=== PATIENT | female | born 1980 | race Caucasian/White ===

== ENCOUNTER 2016-10-29 19:31 | Emergency (ER) | payer MEDICAID ==
[~2016-10-29] VITALS: Ht 152.4 cm; Wt 65.8 kg
[~2016-10-29 19:31] MED LIST: FERR324T11 PO; PREN-385 PO
[2016-10-29 20:03] VITALS: BP 134/90
--- NOTE | 2016-10-29 22:53 | NUR ---
TO ER BED 8
--- NOTE | 2016-10-29 22:58 | NUR ---
PATIENT PRESENTS TO ED WITH C/O RECTAL BLEED . PT STATES SHE HAS HAD THIS X3DAYS NOW WITH NO PAIN . DENIES N/V/D; SKIN IS PINK/WARM/DRY; AAOX4 WITH EVEN AND STEADY GAIT; LUNGS CLEAR BL; HR EVEN AND REGULAR; PT DENIES ANY FEVER, CP, SOB, OR COUGH AT THIS TIME; PATIENT STATES PAIN OF 0/10 AT THIS TIME; VSS; PATIENT POSITIONED FOR COMFORT; HOB ELEVATED; BEDRAILS UP X2; BED DOWN. ER MD MADE AWARE OF PT STATUS.
[2016-10-29 23:35] LABS: APPEARANCE,URINE CLOUDY (CLEAR); BILIRUBIN,URINE NEGATIVE (NEGATIVE); BLOOD, URINE NEGATIVE (NEGATIVE); COLOR,URINE YELLOW (YELLOW); LEUKOCYTE ESTERASE ,URINE NEGATIVE (NEGATIVE); NITRITE, URINE NEGATIVE (NEGATIVE); PROTEIN,URINE NEGATIVE (NEGATIVE); UGLUCOSE NEGATIVE (NEGATIVE); UROBILINOGEN,URINE 0.2 EU/dL (0.2 - 1)
[2016-10-29 23:53] LABS: BACTERIA,URINE 1+ /HPF (None Seen); MUCUS,URINE 1+ /LPF (None Seen); RBC,URINE 0-5 (RARE) /HPF (0-5); WBC,URINE 0-5 (RARE) /HPF (0-5)
[2016-10-29 23:54] LABS: URINE AMORPHOUS URATE 4+ /HPF (None Seen)
--- NOTE | 2016-10-30 00:06 | NUR ---
Female Wood Cabinetmaker accompanied female patient for Rectal Exam.
[2016-10-30 00:33] VITALS: BP 128/75
--- NOTE | 2016-10-30 00:34 | NUR ---
Patient discharged with v/s stable. Written and verbal after care instructions given and explained. Patient alert, oriented and verbalized understanding of instructions. Ambulatory with steady gait. All questions addressed prior to discharge. ID band removed. Patient advised to follow up with PMD. Rx of ANUSOL HC 2.5% RECTAL CREAM given. Patient educated on indication of medication including possible reaction and side effects. Opportunity to ask questions provided and answered.
== END 2016-10-30 00:32 | disposition home or self-care (01) ==
LOC: MED 19:31
DX: K64.4 Residual hemorrhoidal skin tags (principal)
CPT/HCPCS: 81001; 81025; 87086; 99284

== ENCOUNTER 2018-10-14 22:49 | Emergency (ER) | payer MEDICAID ==
[~2018-10-14] VITALS: Ht 152.4 cm; Wt 72.6 kg
[2018-10-14 22:55] VITALS: BP 113/74
--- NOTE | 2018-10-14 22:57 | NUR ---
TO LOBBY A/W BED AMB, BRUNA COE NOTED
--- NOTE | 2018-10-14 23:05 | NUR ---
BIB SELF WITH C/O PAINFUL URINATION AND SUPRAPUBIC PAIN SINCE THIS MORNING. DENIES NVD, FEVER. URINE COLLECTED.
--- NOTE | 2018-10-14 23:05 | NUR ---
PT TAKEN TO BED 11
[2018-10-15] MEDS ORDERED: PHENAZOPYRIDINE 100 MG TAB PO ONE (00:10)
[2018-10-15] MEDS ORDERED: KETOROLAC 60 MG/2 ML VIAL IM ONE (00:10)
[2018-10-15] MEDS ORDERED: SULFAMETH/TRIMETH DS 800/160MG 1 TAB PO ONE (00:10)
[2018-10-15 00:35] VITALS: BP 112/71
--- NOTE | 2018-10-15 00:35 | NUR ---
Patient discharged with v/s stable. Written and verbal after care instructions given and explained. Patient alert, oriented and verbalized understanding of instructions. Ambulatory with steady gait. All questions addressed prior to discharge. ID band removed. Patient advised to follow up with PMD. Rx of PYRIDIUM AND BACTRIM DS given. Patient educated on indication of medication including possible reaction and side effects. Opportunity to ask questions provided and answered.
== END 2018-10-15 00:35 | disposition home or self-care (01) ==
LOC: MED 22:49
DX: N39.0 Urinary tract infection, site not specified (principal); Z79.899 Other long term (current) drug therapy
CPT/HCPCS: 81002; 81025; 96372; 99283; J1885

== ENCOUNTER 2019-05-01 21:40 | Emergency (ER) | payer MEDICAID ==
[~2019-05-01] VITALS: Ht 152.4 cm; Wt 72.1 kg
[2019-05-01 21:43] VITALS: BP 144/79
--- NOTE | 2019-05-01 21:43 | NUR ---
PT AMBULATED TO BED #8
--- NOTE | 2019-05-01 22:00 | NUR ---
DR. CABA BEDSIDE EVALUATING PT
--- NOTE | 2019-05-01 22:07 | NUR ---
PT C/O RIGHT 1ST TOE PAIN X 1 WEEK. PT STATED THAT SHE HAD A PEDICURE DONE AND NOW THERE IS PAIN 8/10, ERYTHMA, SWELLING AND PUS/DRAINAGE. SKIN TEAR AT NAIL BED NOTED. VSS. AA0X4. BED IS DOWN, LOCKED, BED RAIL X 1, ERMD TO SEE PT. NKA NO PREVIOUS MEDICAL HX
[2019-05-01] MEDS ORDERED: LIDOCAINE 2% 1000 MG/50 ML VIAL INJ ONE (22:10)
--- NOTE | 2019-05-01 22:16 | NUR ---
LIDOCAINE AT BEDSIDE FOR ERMD
[2019-05-01] MEDS ORDERED: BACITRACIN OINT 500 UNITS/GM PKT TP ONE ×2 (22:35→22:37)
--- NOTE | 2019-05-01 22:50 | NUR ---
BACITRACIN APPLIED TO SITE AND BANDAGED
[2019-05-01 23:00] VITALS: BP 146/74
--- NOTE | 2019-05-01 23:00 | NUR ---
Patient discharged with v/s stable. Written and verbal after care instructions given and explained. Patient alert, oriented and verbalized understanding of instructions. Ambulatory with steady gait. All questions addressed prior to discharge. ID band removed. Patient advised to follow up with PMD. Rx of BACTRIM AND MOTRIN given. Patient educated on indication of medication including possible reaction and side effects. Opportunity to ask questions provided and answered.
== END 2019-05-01 23:00 | disposition home or self-care (01) ==
LOC: MED 21:40
DX: L03.031 Cellulitis of right toe (principal); Z79.899 Other long term (current) drug therapy
CPT/HCPCS: 10060; 99283; J2001

== ENCOUNTER 2021-03-15 00:30 | Emergency (ER) | payer MEDICAID, SELFPAY ==
[~2021-03-15] VITALS: Ht 152.4 cm; Wt 68.0 kg
[~2021-03-15 00:30] MED LIST changes: +ALBU0.0912 INH; +ASPI-1749 PO; +DEXA6TAB1 PO; -FERR324T11 PO; +GUAN1TAB6 PO; -PREN-385 PO; +VITC500 PO; +ZINC220C29 PO; +[UNRECOGNIZED DRUG - CODE] PO
[2021-03-15 00:58] VITALS: BP 142/90
[2021-03-15 01:48] LABS: BASOPHILS # (AUTO) 0.1 K/uL (0.00-0.22); BASOPHILS % (AUTO) 0.4 % (0.0-2.0); EOSINOPHILS # (AUTO) 0.1 K/uL (0-0.4); EOSINOPHILS % (AUTO) 0.5 % (0.0-4.0); HEMATOCRIT 41.4 % (36-48); HEMOGLOBIN 13.6 g/dL (12.0-16.0); LYMPHOCYTES # (AUTO) 3.1 K/uL (2.5-16.5); LYMPHOCYTES % (AUTO) 19.5 % (20.5-51.1); MEAN CORPUSCULAR HEMOGLOBIN 30 pg (27-31); MEAN CORPUSCULAR HGB CONC 33 g/dL (33-37); MEAN CORPUSCULAR VOLUME 91.2 fL (80-94); MONOCYTES # (AUTO) 1.1 K/uL (0.8-1.0); MONOCYTES % (AUTO) 7.3 % (1.7-9.3); NEUTROPHILS # (AUTO) 11.3 K/uL (1.8-7.7); NEUTROPHILS % (AUTO) 72.3 % (42.2-75.2); PLATELET COUNT (AUTO) 373 K/uL (140-450); RED BLOOD CELL COUNT(AUTO) 4.54 MIL/uL (4.20-5.40); RED CELL DISTRIBUTION WIDTH 14.4 % (11.6-13.7); WHITE BLOOD COUNT (AUTO) 15.7 K/uL (4.8-10.8)
--- NOTE | 2021-03-15 01:50 | NUR ---
TO BED AMBULATORY WITH DAUGHTER
--- NOTE | 2021-03-15 02:00 | NUR ---
SEEN AND EXAMINED BY CAROLIN, WITH ORDERS AND CARRIED OUT.
[2021-03-15] MEDS ORDERED: NACL 0.9% 1,000 ML IV ONE ×2 (02:15→05:30)
--- NOTE | 2021-03-15 03:00 | NUR ---
SENT FOR CT WITH THE TECH., VIA WHEELCHAIR
--- NOTE | 2021-03-15 03:50 | NUR ---
PATIENT VERY ANXIOUS, NOTED BY ERMD WITH ORDER, CARRIED OUT.
[2021-03-15 03:59] LABS: ALBUMIN 3.2 g/dL (3.4-5.0); ANION GAP 14.1 (8-16); CREATININE 0.7 mg/dL (0.6-1.3); POTASSIUM 4.1 mmol/L (3.5-5.1); TOTAL BILIRUBIN 0.4 mg/dL (0.0-1.0)
[2021-03-15] MEDS ORDERED: LORazepam 2 MG/ML VIAL IVP ONE (04:00)
--- NOTE | 2021-03-15 04:00 | NUR ---
MEDICATED PER ERMDS ORDER, TOLERATED WELL.
--- NOTE | 2021-03-15 04:15 | NUR ---
Patient appears to be resting comfortably in bed. Vital Signs within normal limits. Respirations even and unlabored.
[2021-03-15] MEDS ORDERED: ATI.5 PO (05:28)
--- NOTE | 2021-03-15 05:45 | NUR ---
ALL RESULTS BACK AND NOTED BY ERMD AND FOR D/C
[2021-03-15 06:40] VITALS: BP 117/89
--- NOTE | 2021-03-18 19:31 | NUR ---
LATE ENTRY- 0.9% NS IVF DISCONTINUED AT 0640
== END 2021-03-15 06:40 | disposition home or self-care (01) ==
LOC: MED 00:30
DX: R00.2 Palpitations (principal); R00.0 Tachycardia, unspecified; E86.0 Dehydration; Z79.899 Other long term (current) drug therapy; Z79.82 Long term (current) use of aspirin; Z86.19 Personal history of other infectious and parasitic diseases
CPT/HCPCS: 36415; 71275; 80053; 81002; 81025; 84703; 85025; 93005; 96361; 96374; 99285; J2060; J7030; Q9967

== ENCOUNTER 2021-03-20 15:44 | Emergency (ER) | payer MEDICAID, SELFPAY ==
[~2021-03-20] VITALS: Ht 152.4 cm; Wt 63.5 kg
[~2021-03-20 15:44] MED LIST changes: +ATI.5 PO
[2021-03-20 15:50] VITALS: BP 140/83
[2021-03-20] MEDS ORDERED: MELA1TAB32 PO (17:48)
[2021-03-20] MEDS ORDERED: HYDR25CA1 PO (17:48)
[2021-03-20 18:20] VITALS: BP 135/75
--- NOTE | 2021-03-20 18:20 | NUR ---
Patient discharged with v/s stable. Written and verbal after care instructions given and explained. Patient alert, oriented and verbalized understanding of instructions. Ambulatory with steady gait. All questions addressed prior to discharge. ID band removed. Patient advised to follow up with PMD. Rx of VISTARIL, MELATONIN given. Patient educated on indication of medication including possible reaction and side effects. Opportunity to ask questions provided and answered.
--- NOTE | 2021-03-20 18:20 | NUR ---
no nursing care rendered
== END 2021-03-20 18:20 | disposition home or self-care (01) ==
LOC: MED 15:44
DX: F41.9 Anxiety disorder, unspecified (principal); Z79.899 Other long term (current) drug therapy; Z79.82 Long term (current) use of aspirin
CPT/HCPCS: 71045; 99283

== ENCOUNTER 2021-04-13 11:46 | Emergency (ER) | payer MEDICAID ==
[~2021-04-13] VITALS: Ht 152.4 cm; Wt 72.6 kg
[~2021-04-13 11:46] MED LIST changes: +HYDR25CA1 PO; +MELA1TAB32 PO
[2021-04-13 12:07] VITALS: BP 122/76
--- NOTE | 2021-04-13 12:10 | NUR ---
PT TO WAIT IN LOBBY.
[2021-04-13] MEDS ORDERED: ATI.5 PO (13:58)
--- NOTE | 2021-04-13 14:33 | NUR ---
PT TAKEN TO CT VIA W/C.
[2021-04-13 14:39] LABS: BASOPHILS # (AUTO) 0.1 K/uL (0.00-0.22); BASOPHILS % (AUTO) 0.8 % (0.0-2.0); EOSINOPHILS # (AUTO) 0.1 K/uL (0-0.4); EOSINOPHILS % (AUTO) 1.3 % (0.0-4.0); HEMOGLOBIN 14.2 g/dL (12.0-16.0); LYMPHOCYTES % (AUTO) 29.5 % (20.5-51.1); MEAN CORPUSCULAR HEMOGLOBIN 30 pg (27-31); MEAN CORPUSCULAR HGB CONC 32 g/dL (33-37); MEAN CORPUSCULAR VOLUME 93.5 fL (80-94); MONOCYTES # (AUTO) 0.4 K/uL (0.8-1.0); MONOCYTES % (AUTO) 6.5 % (1.7-9.3); NEUTROPHILS # (AUTO) 4.2 K/uL (1.8-7.7); NEUTROPHILS % (AUTO) 61.9 % (42.2-75.2); PLATELET COUNT (AUTO) 395 K/uL (140-450); RED CELL DISTRIBUTION WIDTH 15.3 % (11.6-13.7); WHITE BLOOD COUNT (AUTO) 6.8 K/uL (4.8-10.8)
[2021-04-13 14:47] LABS: BILIRUBIN,URINE NEGATIVE (NEGATIVE); BLOOD, URINE NEGATIVE (NEGATIVE); COLOR,URINE YELLOW (YELLOW); LEUKOCYTE ESTERASE ,URINE TRACE (NEGATIVE); NITRITE, URINE POSITIVE (NEGATIVE); UGLUCOSE NEGATIVE (NEGATIVE)
[2021-04-13 14:53] LABS: APPEARANCE,URINE HAZY (CLEAR)
[2021-04-13 15:15] LABS: ALBUMIN 4.1 g/dL (3.4-5.0); ANION GAP 11.8 (8-16); CARBON DIOXIDE 28.4 mmol/L (21-32); CREATININE 0.6 mg/dL (0.6-1.3); POTASSIUM 4.2 mmol/L (3.5-5.1); TOTAL BILIRUBIN 0.3 mg/dL (0.0-1.0)
[2021-04-13 15:32] LABS: RBC,URINE NONE SEEN /HPF (0-5); WBC,URINE 0-5 /HPF (0-5)
[2021-04-13] MEDS ORDERED: CEPH-588 PO (16:53)
[2021-04-13 17:21] VITALS: BP 122/76
--- NOTE | 2021-04-13 17:21 | NUR ---
Patient discharged with v/s stable. Written and verbal after care instructions given and explained. Patient alert, oriented and verbalized understanding of instructions. Ambulatory with steady gait. All questions addressed prior to discharge. ID band removed. Patient advised to follow up with PMD. Rx of LORAZEPAM, CEPHALEXIN given. Patient educated on indication of medication including possible reaction and side effects. Opportunity to ask questions provided and answered.
== END 2021-04-13 17:21 | disposition home or self-care (01) ==
LOC: MED 11:46
DX: R10.13 Epigastric pain (principal); F41.9 Anxiety disorder, unspecified; N39.0 Urinary tract infection, site not specified
CPT/HCPCS: 36415; 80053; 81001; 81025; 85025; 99284

== ENCOUNTER 2021-05-15 15:02 | Emergency (ER) | payer MEDICAID ==
[~2021-05-15] VITALS: Ht 152.4 cm; Wt 65.8 kg
[~2021-05-15 15:02] MED LIST changes: +CEPH-588 PO
--- NOTE | 2021-05-15 15:16 | NUR ---
PT AMB TO BED 1.
[2021-05-15 15:20] VITALS: BP 135/75
--- NOTE | 2021-05-15 15:30 | NUR ---
PT ARRIVES TO ED FOR REFILL OF ATIVAN RX. NO OTHER MEDICAL COMPLAINTS.
[2021-05-15] MEDS ORDERED: ATA25 PO (15:47)
--- NOTE | 2021-05-15 15:57 | NUR ---
PT VERBALIZES DC INSTRUCTIONS. NO ACUTE DISTRESS NOTED. STABLE ON DC.
== END 2021-05-15 15:56 | disposition home or self-care (01) ==
LOC: MED 15:02
DX: F41.9 Anxiety disorder, unspecified (principal); Z76.0 Encounter for issue of repeat prescription
CPT/HCPCS: 99283

== ENCOUNTER 2021-07-23 10:35 | Emergency (ER) | payer MEDICAID ==
[~2021-07-23] VITALS: Ht 152.4 cm; Wt 71.2 kg
[~2021-07-23 10:35] MED LIST changes: +ATA25 PO
[2021-07-23 10:59] VITALS: BP 142/96
[2021-07-23] MEDS ORDERED: HYDROcodone/APAP 5/325 MG 1 TAB TAB PO ONE (11:25)
[2021-07-23] MEDS ORDERED: ONDANSETRON 4 MG ODT PO ONE (11:25)
[2021-07-23] MEDS ORDERED: KETOROLAC 30 MG/ML VIAL IM ONE ×2 (11:25→14:50)
[2021-07-23 13:05] LABS: BASOPHILS % (AUTO) 0.2 % (0.0-2.0); EOSINOPHILS % (AUTO) 0.2 % (0.0-4.0); HEMATOCRIT 42.1 % (36-48); HEMOGLOBIN 14.2 g/dL (12.0-16.0); LYMPHOCYTES % (AUTO) 9.1 % (20.5-51.1); MEAN CORPUSCULAR HEMOGLOBIN 30 pg (27-31); MEAN CORPUSCULAR HGB CONC 34 g/dL (33-37); MEAN CORPUSCULAR VOLUME 90.2 fL (80-94); MONOCYTES # (AUTO) 0.1 K/uL (0.8-1.0); MONOCYTES % (AUTO) 0.6 % (1.7-9.3); NEUTROPHILS # (AUTO) 9.5 K/uL (1.8-7.7); NEUTROPHILS % (AUTO) 89.9 % (42.2-75.2); PLATELET COUNT (AUTO) 379 K/uL (140-450); RED BLOOD CELL COUNT(AUTO) 4.67 MIL/uL (4.20-5.40); RED CELL DISTRIBUTION WIDTH 13.7 % (11.6-13.7); WHITE BLOOD COUNT (AUTO) 10.6 K/uL (4.8-10.8)
[2021-07-23 13:18] LABS: ALBUMIN 3.8 g/dL (3.4-5.0); ANION GAP 8.2 (8-16); CARBON DIOXIDE 27.8 mmol/L (21-32); CREATININE 0.7 mg/dL (0.6-1.3); TOTAL BILIRUBIN 0.3 mg/dL (0.0-1.0)
[2021-07-23 14:41] LABS: APPEARANCE,URINE CLEAR (CLEAR); BILIRUBIN,URINE NEGATIVE (NEGATIVE); BLOOD, URINE TRACE-I (NEGATIVE); LEUKOCYTE ESTERASE ,URINE NEGATIVE (NEGATIVE); NITRITE, URINE NEGATIVE (NEGATIVE); PH,URINE 7.5 (5.0-9.0); UGLUCOSE NEGATIVE (NEGATIVE)
[2021-07-23 14:45] LABS: COLOR,URINE STRAW (YELLOW)
[2021-07-23 14:54] LABS: WBC,URINE 0-5 /HPF (0-5)
[2021-07-23] MEDS ORDERED: ONDA-188 PO (15:16)
[2021-07-23] MEDS ORDERED: ACET-8386 PO (15:16)
[2021-07-23] MEDS ORDERED: NAPR-54 PO (15:16)
[2021-07-23 15:50] VITALS: BP 142/96
--- NOTE | 2021-07-23 15:50 | NUR ---
Patient discharged with v/s stable. Written and verbal after care instructions given and explained. Patient alert, oriented and verbalized understanding of instructions. Ambulatory with steady gait. All questions addressed prior to discharge. ID band removed. Patient advised to follow up with PMD. Rx of ondansetron, naproxen, hydrocodone/acetaminophen (sent) given. Patient educated on indication of medication including possible reaction and side effects. Opportunity to ask questions provided and answered.
== END 2021-07-23 15:50 | disposition home or self-care (01) ==
LOC: MED 10:35
DX: N20.1 Calculus of ureter (principal); R10.32 Left lower quadrant pain; Z79.899 Other long term (current) drug therapy; Z79.82 Long term (current) use of aspirin
CPT/HCPCS: 36415; 74176; 80053; 81001; 81025; 83690; 85025; 96372; 99284; J1885; Q0162

== ENCOUNTER 2021-11-21 18:34 | Emergency (ER) | payer MEDICAID ==
[~2021-11-21] VITALS: Ht 167.6 cm; Wt 68.0 kg
[~2021-11-21 18:34] MED LIST changes: +ACET-8386 PO; +NAPR-54 PO; +ONDA-188 PO
[2021-11-21 18:58] VITALS: BP 132/87
--- NOTE | 2021-11-21 19:03 | NUR ---
PT AMB TO BED 8.
--- NOTE | 2021-11-21 19:15 | NUR ---
40 Y/O F BIB SELF C/O RECTAL PAIN AND PRESSURE 8/10 AND BLEEDING SINCE THIS MORNING. NKA PMH:ANXIETY, HEMORRHOIDS, DIVERTICULITIS
--- NOTE | 2021-11-21 19:23 | NUR ---
GAVE REPORT TO [facility].
[2021-11-21] MEDS ORDERED: PHEN26CR2 RC (21:18)
[2021-11-21 21:40] VITALS: BP 132/87
--- NOTE | 2021-11-21 21:40 | NUR ---
Patient discharged with v/s stable. Written and verbal after care instructions given and explained. Patient alert, oriented and verbalized understanding of instructions. Ambulatory with steady gait. All questions addressed prior to discharge. ID band removed. Patient advised to follow up with PMD. Rx of preparation H cream given. Patient educated on indication of medication including possible reaction and side effects. Opportunity to ask questions provided and answered.
== END 2021-11-21 21:40 | disposition home or self-care (01) ==
LOC: MED 18:34
DX: K64.4 Residual hemorrhoidal skin tags (principal); K62.5 Hemorrhage of anus and rectum; Z79.899 Other long term (current) drug therapy; Z79.891 Long term (current) use of opiate analgesic; Z79.1 Long term (current) use of non-steroidal anti-inflammatories (NSAID); Z79.2 Long term (current) use of antibiotics; Z79.82 Long term (current) use of aspirin
CPT/HCPCS: 99282

== ENCOUNTER 2021-12-30 15:03 | Emergency (ER) | payer MEDICAID ==
[~2021-12-30] VITALS: Ht 152.4 cm; Wt 65.8 kg
[~2021-12-30 15:03] MED LIST changes: +PHEN26CR2 RC
[2021-12-30 15:08] VITALS: BP 125/85
--- NOTE | 2021-12-30 15:14 | NUR ---
PT AMB TO BED 7.
[2021-12-30] MEDS ORDERED: CEPH-588 PO (15:32)
--- NOTE | 2021-12-30 15:35 | NUR ---
Dr. Bryson evaluating patient at bedside.
--- NOTE | 2021-12-30 15:41 | NUR ---
41 y/o female bib self with c/o lower abdominal pain x5 days. Patient also has painful urination and "foaming of her urine" x 5 days. Patient has a 6/10 pain level. Patient denies nausea or vomiting. Patient has no SOB or chest pain. Medical History: Denies NKDA
--- NOTE | 2021-12-30 15:52 | NUR ---
Patient discharged with v/s stable. Written and verbal after care instructions given. Patient alert, oriented and verbalized understanding of instructions. Ambulatory with steady gait. All questions addressed prior to discharge. ID band removed. Patient advised to follow up with PMD. Rx of Keflex given. Opportunity to ask questions provided and answered.
[2021-12-30 15:53] VITALS: BP 125/85
--- NOTE | 2021-12-30 17:05 | NUR ---
The patient's care was reviewed and supervised by Cristy Shah RN.
== END 2021-12-30 15:53 | disposition home or self-care (01) ==
LOC: MED 15:03
DX: N39.0 Urinary tract infection, site not specified (principal); R10.10 Upper abdominal pain, unspecified
CPT/HCPCS: 81002; 81025; 87086; 99283

== ENCOUNTER 2022-03-18 13:15 | Emergency (ER) | payer MEDICAID ==
[~2022-03-18] VITALS: Ht 154.9 cm; Wt 74.8 kg
[2022-03-18 13:20] VITALS: BP 131/90
--- NOTE | 2022-03-18 15:51 | NUR ---
PT AMBULATED TO ER BED 5
--- NOTE | 2022-03-18 16:05 | NUR ---
41YO FEMALE PT C/O RECTAL ITCHYNESS X3 WEEKS. STATES USING OTC CREAM W/ NO RELIEF. DENIES BLOOD IN STOOL, BOWEL CHANGES, N/V/D, CHEST PAIN OR SOB. RECTAL AREA PRESENTSD W/O SWELLING OR VISIBLE INJURY. PT AAOX4, NO VISIBLE DISTRESS.. RESPIRATIONS EVEN AND UNLABORED. HX:DENIES NKA
[2022-03-18] MEDS ORDERED: HYDR25SU37 RC (16:10)
[2022-03-18 16:25] VITALS: BP 133/72
--- NOTE | 2022-03-18 16:25 | NUR ---
Patient discharged with v/s stable. Written and verbal after care instructions FOR HEMORRHOIDS given and explained. Patient alert, oriented and verbalized understanding of instructions. Ambulatory with steady gait. All questions addressed prior to discharge. ID band removed. Patient advised to follow up with PMD. Rx of ANUCORT HC given. Opportunity to ask questions provided and answered.
== END 2022-03-18 16:25 | disposition home or self-care (01) ==
LOC: MED 13:15
DX: L29.0 Pruritus ani (principal); K64.4 Residual hemorrhoidal skin tags; R03.0 Elevated blood-pressure reading, without diagnosis of hypertension; Z79.899 Other long term (current) drug therapy
CPT/HCPCS: 99283

== ENCOUNTER 2022-05-20 10:59 | Emergency (ER) | payer MEDICAID ==
[~2022-05-20] VITALS: Ht 157.5 cm; Wt 65.8 kg
[~2022-05-20 10:59] MED LIST changes: +HYDR25SU37 RC
[2022-05-20 11:11] VITALS: BP 110/76
[2022-05-20] MEDS ORDERED: BENZ-300 PO (15:06)
[2022-05-20] MEDS ORDERED: PROM118S5 PO (15:06)
[2022-05-20] MEDS ORDERED: IBUP-2213 PO (15:06)
[2022-05-20] MEDS ORDERED: KETOROLAC 30 MG/ML VIAL IM ONE (15:25)
[2022-05-20] MEDS ORDERED: NITR100C7 PO (15:26)
== END 2022-05-20 15:37 | disposition home or self-care (01) ==
LOC: MED 10:59
DX: N39.0 Urinary tract infection, site not specified (principal); Z20.822 Contact with and (suspected) exposure to COVID-19; J06.9 Acute upper respiratory infection, unspecified
CPT/HCPCS: 87426; 87804; 96372; 99283; J1885

== ENCOUNTER 2022-06-21 10:15 | Emergency (ER) | payer MEDICAID ==
[~2022-06-21] VITALS: Ht 152.4 cm; Wt 78.5 kg
[~2022-06-21 10:15] MED LIST changes: +BENZ-300 PO; +IBUP-2213 PO; +NITR100C7 PO; +PROM118S5 PO
[2022-06-21 10:24] VITALS: BP 131/92
--- NOTE | 2022-06-21 10:27 | NUR ---
PT AMBULATED TO LOBBY AFTER TRIAGE.
--- NOTE | 2022-06-21 10:27 | NUR ---
41/F WALKED IN C/O RLQ ABD PAIN ONSET 4DAYS. DENIES FALL OR TRAUMA. DENIES NVD, AFEBRILE. PT ALSO C/O CHRONIC B/L HAND TINGLING AND ITCHING SENSATION THAT GOT WORSE RECENTLY. AAO4, AMBULATORY, VITALS STABLE. PMH: DENIES LMP: TODAY
--- NOTE | 2022-06-21 10:30 | NUR ---
URINE COLLECTED AND SENT TO BIN
[2022-06-21 13:10] LABS: ALBUMIN 3.8 g/dL (3.4-5.0); CARBON DIOXIDE 28.7 mmol/L (21-32); CREATININE 0.6 mg/dL (0.6-1.3); POTASSIUM 4.7 mmol/L (3.5-5.1); TOTAL BILIRUBIN 0.6 mg/dL (0.0-1.0)
[2022-06-21 13:13] LABS: BASOPHILS # (AUTO) 0.1 K/uL (0.00-0.22); BASOPHILS % (AUTO) 0.9 % (0.0-2.0); EOSINOPHILS # (AUTO) 0.1 K/uL (0-0.4); EOSINOPHILS % (AUTO) 1.7 % (0.0-4.0); HEMATOCRIT 42.5 % (36-48); HEMOGLOBIN 14.3 g/dL (12.0-16.0); LYMPHOCYTES # (AUTO) 2.8 K/uL (2.5-16.5); LYMPHOCYTES % (AUTO) 36.3 % (20.5-51.1); MEAN CORPUSCULAR HEMOGLOBIN 30 pg (27-31); MEAN CORPUSCULAR HGB CONC 34 g/dL (33-37); MEAN CORPUSCULAR VOLUME 90.4 fL (80-94); MONOCYTES # (AUTO) 0.4 K/uL (0.8-1.0); MONOCYTES % (AUTO) 5.2 % (1.7-9.3); NEUTROPHILS # (AUTO) 4.2 K/uL (1.8-7.7); NEUTROPHILS % (AUTO) 55.9 % (42.2-75.2); PLATELET COUNT (AUTO) 390 K/uL (140-450); RED BLOOD CELL COUNT(AUTO) 4.71 MIL/uL (4.20-5.40); RED CELL DISTRIBUTION WIDTH 13.3 % (11.6-13.7); WHITE BLOOD COUNT (AUTO) 7.6 K/uL (4.8-10.8)
[2022-06-21 14:53] LABS: APPEARANCE,URINE CLEAR (CLEAR); BILIRUBIN,URINE NEGATIVE (NEGATIVE); BLOOD, URINE TRACE-I (NEGATIVE); COLOR,URINE YELLOW (YELLOW); LEUKOCYTE ESTERASE ,URINE NEGATIVE (NEGATIVE); NITRITE, URINE NEGATIVE (NEGATIVE); UGLUCOSE NEGATIVE (NEGATIVE)
[2022-06-21] MEDS ORDERED: NAPR-1704 PO (15:04)
[2022-06-21 15:08] LABS: OTHER CASTS, URINE None Seen /LPF (None Seen); WBC,URINE 0-5 /HPF (0-5)
--- NOTE | 2022-06-21 15:40 | NUR ---
PT CALLED FOR DC, NO ANSWER IN THE LOBBY. PT LEFT PRIOR TO DC.
== END 2022-06-21 15:40 | disposition home or self-care (01) ==
LOC: MED 10:15
DX: R10.11 Right upper quadrant pain (principal); N20.0 Calculus of kidney
CPT/HCPCS: 36415; 76705; 80053; 81001; 81025; 83690; 85025; 99284; Q0092

== ENCOUNTER 2022-08-11 16:39 | Emergency (ER) | payer MEDICAID ==
[~2022-08-11] VITALS: Ht 152.4 cm; Wt 78.5 kg
[~2022-08-11 16:39] MED LIST changes: -ACET-8386 PO; +ACET-8905 PO; +NAPR-1704 PO
[2022-08-11 16:46] VITALS: BP 118/70
[2022-08-11 17:13] LABS: BILIRUBIN,URINE NEGATIVE (NEGATIVE); BLOOD, URINE NEGATIVE (NEGATIVE); COLOR,URINE YELLOW (YELLOW); LEUKOCYTE ESTERASE ,URINE 2+ (NEGATIVE); NITRITE, URINE NEGATIVE (NEGATIVE); UGLUCOSE NEGATIVE (NEGATIVE)
[2022-08-11 17:15] LABS: APPEARANCE,URINE HAZY (CLEAR)
[2022-08-11] MEDS ORDERED: KETOROLAC 30 MG/ML VIAL IM ONE (17:15)
[2022-08-11 17:28] LABS: RBC,URINE NONE SEEN /HPF (0-5); WBC,URINE 80-100 /HPF (0-5)
[2022-08-11] MEDS ORDERED: cefTRIAXone 500 MG in LIDOCAINE MPF 1% 1 ML IM ONE (18:25)
[2022-08-11] MEDS ORDERED: cefTRIAXone 500 MG VIAL ONE (18:29)
[2022-08-11] MEDS ORDERED: LIDOCAINE MPF 1% 5 ML ONE (18:30)
[2022-08-11] MEDS ORDERED: CEPH-588 PO (19:18)
[2022-08-11] MEDS ORDERED: PYR100 PO (19:19)
[2022-08-11 19:40] VITALS: BP 118/70
--- NOTE | 2022-08-11 19:40 | NUR ---
Patient discharged with v/s stable. Written and verbal after care instructions given and explained. Patient alert, oriented and verbalized understanding of instructions. Ambulatory with steady gait. All questions addressed prior to discharge. ID band removed. Patient advised to follow up with PMD. Rx of pyridium and keflex given. Patient educated on indication of medication including possible reaction and side effects. Opportunity to ask questions provided and answered.
== END 2022-08-11 19:40 | disposition home or self-care (01) ==
LOC: MED 16:39
DX: N39.0 Urinary tract infection, site not specified (principal); N93.9 Abnormal uterine and vaginal bleeding, unspecified; Z79.899 Other long term (current) drug therapy; Z87.442 Personal history of urinary calculi; Z79.82 Long term (current) use of aspirin
CPT/HCPCS: 76856; 81001; 81025; 87086; 93976; 96372; 99285; J0696; J1885; J2001; 99284

== ENCOUNTER 2022-12-20 10:17 | Emergency (ER) | payer MEDICAID ==
[~2022-12-20] VITALS: Ht 152.4 cm; Wt 77.1 kg
[~2022-12-20 10:17] MED LIST changes: +PYR100 PO
[2022-12-20 10:21] VITALS: BP 142/84
--- NOTE | 2022-12-20 10:24 | NUR ---
pt ambulatory to bed 11 w steady gait
[2022-12-20] MEDS ORDERED: KETOROLAC 30 MG/ML VIAL IM ONE (10:35)
[2022-12-20] MEDS ORDERED: ONDANSETRON 4 MG ODT PO ONE (10:35)
[2022-12-20 11:01] LABS: APPEARANCE,URINE CLEAR (CLEAR); BILIRUBIN,URINE NEGATIVE (NEGATIVE); BLOOD, URINE NEGATIVE (NEGATIVE); COLOR,URINE YELLOW (YELLOW); LEUKOCYTE ESTERASE ,URINE 1+ (NEGATIVE); NITRITE, URINE NEGATIVE (NEGATIVE); UGLUCOSE NEGATIVE (NEGATIVE)
[2022-12-20 11:02] LABS: BASOPHILS % (AUTO) 0.8 % (0.0-2.0); EOSINOPHILS # (AUTO) 0.1 K/uL (0-0.4); EOSINOPHILS % (AUTO) 2.5 % (0.0-4.0); HEMATOCRIT 42.3 % (36-48); HEMOGLOBIN 14.1 g/dL (12.0-16.0); LYMPHOCYTES # (AUTO) 2.1 K/uL (2.5-16.5); LYMPHOCYTES % (AUTO) 39.1 % (20.5-51.1); MEAN CORPUSCULAR HEMOGLOBIN 30 pg (27-31); MEAN CORPUSCULAR HGB CONC 33 g/dL (33-37); MEAN CORPUSCULAR VOLUME 90.5 fL (80-94); MONOCYTES # (AUTO) 0.3 K/uL (0.8-1.0); MONOCYTES % (AUTO) 5.2 % (1.7-9.3); NEUTROPHILS # (AUTO) 2.8 K/uL (1.8-7.7); NEUTROPHILS % (AUTO) 52.4 % (42.2-75.2); PLATELET COUNT (AUTO) 336 K/uL (140-450); RED BLOOD CELL COUNT(AUTO) 4.67 MIL/uL (4.20-5.40); RED CELL DISTRIBUTION WIDTH 14.1 % (11.6-13.7); WHITE BLOOD COUNT (AUTO) 5.3 K/uL (4.8-10.8)
[2022-12-20 11:14] LABS: ALBUMIN 3.8 g/dL (3.4-5.0); ANION GAP 9.4 (8-16); CARBON DIOXIDE 30.7 mmol/L (21-32); CREATININE 0.6 mg/dL (0.6-1.3); POTASSIUM 4.1 mmol/L (3.5-5.1); TOTAL BILIRUBIN 0.4 mg/dL (0.0-1.0)
[2022-12-20] MEDS ORDERED: BEN10 PO (12:05)
[2022-12-20] MEDS ORDERED: MAG-27 PO (12:05)
[2022-12-20] MEDS ORDERED: NITR100C7 PO (12:05)
--- NOTE | 2022-12-20 12:05 | NUR ---
Pt bibs for epigastric/lower abd pain for several days. Pain starts at lower abd and radiates up, infrequent, 4/10 (after medication), nothing aggrivates or elleviates pain. Pt complains of no abnormalities. Pt is a/o x 4, vss, no ss of acute distress, breathing equal and unlabored, speech clear, on monitor.
[2022-12-20 12:23] VITALS: BP 120/71
== END 2022-12-20 12:24 | disposition home or self-care (01) ==
LOC: MED 10:17
DX: R10.13 Epigastric pain (principal); Z79.899 Other long term (current) drug therapy
CPT/HCPCS: 36415; 76705; 80053; 81003; 81025; 83690; 85025; 87086; 96372; 99285; J1885; Q0092; Q0162

== ENCOUNTER 2023-03-03 20:29 | Emergency (ER) | payer MEDICAID ==
[~2023-03-03] VITALS: Ht 152.4 cm; Wt 77.1 kg
[~2023-03-03 20:29] MED LIST changes: +BEN10 PO; +MAG-27 PO
[2023-03-03 21:14] VITALS: BP 154/75; PULSE 85; RESP 20; TEMP 98; O2SAT 99
[2023-03-03] MEDS ORDERED: LORazepam 1 MG TAB PO ONE (23:30)
[2023-03-03] MEDS ORDERED: ATA25 PO (23:44)
[2023-03-04 00:10] VITALS: BP 127/66; PULSE 87; RESP 19; TEMP 97.9; O2SAT 99
== END 2023-03-04 00:10 | disposition home or self-care (01) ==
LOC: MED 20:29
DX: R06.00 Dyspnea, unspecified (principal); Z79.899 Other long term (current) drug therapy
CPT/HCPCS: 71045; 93005; 99283

== ENCOUNTER 2023-05-08 14:05 | Emergency (ER) | payer MEDICAID ==
[~2023-05-08] VITALS: Ht 152.4 cm; Wt 77.1 kg
[2023-05-08 14:31] VITALS: BP 150/86; PULSE 97; RESP 18; TEMP 98.3; O2SAT 99
[2023-05-08 16:23] LABS: APPEARANCE,URINE CLEAR (CLEAR); BILIRUBIN,URINE NEGATIVE (NEGATIVE); BLOOD, URINE NEGATIVE (NEGATIVE); COLOR,URINE YELLOW (YELLOW); LEUKOCYTE ESTERASE ,URINE NEGATIVE (NEGATIVE); NITRITE, URINE NEGATIVE (NEGATIVE); PH,URINE 6.5 (5.0-9.0); PROTEIN,URINE NEGATIVE (NEGATIVE); UGLUCOSE NEGATIVE (NEGATIVE); UROBILINOGEN,URINE 0.2 EU/dL (0.2 - 1)
== END 2023-05-08 16:43 | disposition home or self-care (01) ==
LOC: MED 14:05
DX: R30.0 Dysuria (principal); Z79.899 Other long term (current) drug therapy; Z79.2 Long term (current) use of antibiotics; Z79.1 Long term (current) use of non-steroidal anti-inflammatories (NSAID); Z79.82 Long term (current) use of aspirin
CPT/HCPCS: 81003; 81025; 99283

== ENCOUNTER 2023-07-30 16:32 | Emergency (ER) | payer MEDICAID ==
[~2023-07-30] VITALS: Ht 152.4 cm; Wt 83.5 kg
[2023-07-30 16:48] VITALS: BP 147/84; PULSE 115; RESP 17; TEMP 99.5; O2SAT 98
[2023-07-30 17:29] LABS: APPEARANCE,URINE CLEAR (CLEAR); BILIRUBIN,URINE NEGATIVE (NEGATIVE); BLOOD, URINE 2+ (NEGATIVE); COLOR,URINE YELLOW (YELLOW); LEUKOCYTE ESTERASE ,URINE 1+ (NEGATIVE); NITRITE, URINE NEGATIVE (NEGATIVE); PROTEIN,URINE NEGATIVE (NEGATIVE); UGLUCOSE NEGATIVE (NEGATIVE); UROBILINOGEN,URINE 0.2 EU/dL (0.2 - 1)
[2023-07-30 17:43] LABS: BACTERIA,URINE FEW /HPF (None Seen); SQUAMOUS EPITHELIAL CELL,UR 0-3 (FEW) /LPF (0-3 (FEW)); WBC,URINE 0-5 /HPF (0-5)
[2023-07-30 18:56] LABS: FLU A ANTIGEN negative (NEGATIVE); FLU B ANTIGEN NEGATIVE (NEGATIVE)
[2023-07-30] MEDS ORDERED: BENZ100C6 PO (19:02)
[2023-07-30 19:07] VITALS: BP 135/80; PULSE 89; RESP 17; TEMP 98; O2SAT 99
== END 2023-07-30 19:07 | disposition home or self-care (01) ==
LOC: MED 16:32
DX: J06.9 Acute upper respiratory infection, unspecified (principal); Z20.822 Contact with and (suspected) exposure to COVID-19; Z79.899 Other long term (current) drug therapy; Z79.82 Long term (current) use of aspirin; Z79.1 Long term (current) use of non-steroidal anti-inflammatories (NSAID); Z79.2 Long term (current) use of antibiotics
CPT/HCPCS: 81001; 81025; 87086; 99283